=== PATIENT | female | born 1985 | race Caucasian/White ===

== ENCOUNTER 2017-05-21 12:40 | Outpatient (CLI) | payer OTHER | END 2017-05-21 12:41 | disposition home or self-care (01) | LOC: ULT 12:40 | PROVIDERS: ATTEND Family Medicine | DX: R00.2 Palpitations (principal); I34.0 Nonrheumatic mitral (valve) insufficiency; I37.1 Nonrheumatic pulmonary valve insufficiency; I07.1 Rheumatic tricuspid insufficiency | CPT/HCPCS: 93306 ==

== ENCOUNTER 2017-07-26 01:02 | Day surgery (SDC) | payer OTHER ==
[2017-07-26 01:35] VITALS: BP 120/78; TEMP 98.5; BMI 20.5
[2017-07-26 01:55] LABS: Amnisure Internal Control QC ACCEPTABLE (ACCEPTABLE)
[2017-07-26 02:05] LABS: Amnisure Test RUPTURE DETECTED (No Rupture)
== END 2017-07-26 02:35 | disposition home or self-care (01) ==
LOC: L&D/OP 01:02
PROVIDERS: ATTEND Family Medicine
DX: O26.899 Other specified pregnancy related conditions, unspecified trimester (principal); Z3A.00 Weeks of gestation of pregnancy not specified; Z79.82 Long term (current) use of aspirin; Z79.899 Other long term (current) drug therapy
CPT/HCPCS: 84112

== ENCOUNTER 2017-07-26 07:25 | Inpatient (IN) | payer OTHER ==
[2017-07-26 07:58] VITALS: BMI 20.5
[2017-07-26] MEDS ORDERED: Promethazine HCl 25 MG/ML VIAL IM PRN (09:20)
[2017-07-26] MEDS ORDERED: Ondansetron HCl/PF 4 MG/2 ML Vial IVP PRN ×2 (09:20→23:37)
[2017-07-26] MEDS ORDERED: LR 500 ML/Oxytocin 10 units 500 ML IVPB SCH (09:30)
[2017-07-26 09:56] LABS: Hemoglobin 12.3 g/dL (12.0-16.0); Mean Corpuscular HGB CONC 32.7 g/dL (32.0-36.0); Mean Corpuscular Hemoglobin 30.9 pg (27.0-31.0); Mean Corpuscular Volume 94.5 fl (81.0-99.0); Mean Platelet Volume 10.4 fL (7.4-10.4); Platelet Count 157 thou/uL (130-400); Red Blood Cell (RBC) Count 3.98 mill/uL (4.20-5.40); White Blood Cell (WBC) Count 12.2 thou/uL (4.8-10.8)
[2017-07-26 10:49] LABS: HBSAg Index 0.14 S/CO (0-0.99); Hep B Surf Ag Non-Reactive S/CO (NonReactive); Syphilis Antibody Nonreactive (Nonreactive); Syphilis Antibody Index 0.03 S/CO (<1.00 Non-Reactive)
[2017-07-26] MEDS: Lactated Ringer's 1,000 ML IV SCH (15:45)
[2017-07-26] MEDS ORDERED: LR / Pitocin 40 units/1000 ml 1,000 ML ONE (16:17)
[2017-07-26] MEDS ORDERED: LR / Pitocin 40 units/1000 ml 1,000 ML IV PRN (16:39)
[2017-07-26] MEDS ORDERED: Acetaminophen/Codeine 30-300mg Tablet PO PRN ×2 (16:39→23:37)
[2017-07-26] MEDS ORDERED: HYDROcodone/Acetaminophen 5/325 mg Tablet PO PRN ×2 (16:39→23:37)
[2017-07-26] MEDS ORDERED: Lidocaine 1% (PF) 30 ML VIAL SC PRN (16:39)
[2017-07-26] MEDS ORDERED: Misoprostol 200 MCG TAB PR PRN (16:39)
[2017-07-26] MEDS ORDERED: Ibuprofen 800 MG TAB PO PRN (16:39)
[2017-07-26] MEDS ORDERED: Misoprostol 200 MCG TAB ONE (17:24)
[2017-07-26] MEDS ORDERED: Methylergonovine 0.2 MG/ML VIAL ONE (17:55)
[2017-07-26] MEDS ORDERED: Carboprost 250 MCG/ML AMP IM PRN (18:02)
[2017-07-26] MEDS ORDERED: Methylergonovine 0.2 MG/ML VIAL IM PRN (18:02)
[2017-07-26] MEDS ORDERED: Diphenoxylate HCl/Atropine Tablet PO PRN (18:03)
--- NOTE | 2017-07-26 18:49 | PDOC.EVN ---
Event Note - Event Note Event Note: I was called to the room to evaluate bleeding following a normal . Patient had 200ml blood loss during delivery but was noted to continue bleeding moderately with passage of clots. I ordered methergine 0.2 to be given IM and after 15 minutes, continued with moderate bleeding. Bimanual exam was performed with removal of 966ml of measured blood and clot from lower uterine segment and vagina with firm uterus and minimal bleeding following. Patient has received 2L 40u Pit in LR, Methergine 0.2 IM, and 800mcg cytotec [place]. Acevedo catheter placed. CBC ordered. Will continue Methergine PO TID scheduled at this time. BP at baseline, mildly tachycardic. Continue to monitor.
[2017-07-26 19:04] LABS: #Lymphocytes 1.2 thou/uL (1.20-3.40); #Monocytes 1.3 thou/uL (0.11-0.59); %Basophils 0.1 % (0.0-1.0); %Eosinophils 0.1 % (0.0-10.0); %Monocytes 7.7 % (0.0-10.0); %Neutrophils 85.1 % (42.0-75.0); Hemoglobin 12.3 g/dL (12.0-16.0); Mean Corpuscular HGB CONC 32.9 g/dL (32.0-36.0); Mean Corpuscular Hemoglobin 31.4 pg (27.0-31.0); Mean Corpuscular Volume 95.2 fl (81.0-99.0); Mean Platelet Volume 10.5 fL (7.4-10.4); Platelet Count 148 thou/uL (130-400); RBC Distribution Width 11.9 % (11.5-14.5); Red Blood Cell (RBC) Count 3.92 mill/uL (4.20-5.40); White Blood Cell (WBC) Count 16.5 thou/uL (4.8-10.8)
[2017-07-26] MEDS: Methylergonovine 0.2 MG TAB PO SCH (20:40)
[2017-07-26] MEDS ORDERED: LR / Pitocin 40 units/1000 ml 1,000 ML IV SCH (23:37)
[2017-07-26] MEDS ORDERED: Benzocaine/Menthol 20-0.5% 60 ML CAN TOP PRN (23:37)
[2017-07-26] MEDS ORDERED: Bisacodyl 10 MG SUPP PR PRN (23:37)
[2017-07-26] MEDS ORDERED: Lanolin Ointment 7 GM TUBE TOP PRN (23:37)
[2017-07-26] MEDS ORDERED: diphenhydrAMINE 25 MG CAP PO PRN (23:37)
[2017-07-26] MEDS ORDERED: Preparation H Ointment 28 GM TUBE PR PRN (23:37)
[2017-07-26] MEDS ORDERED: Milk Of Magnesia 30 ML UDCUP PO PRN (23:37)
[2017-07-27] MEDS ORDERED: Ibuprofen 800 MG TAB PO SCH (00:15)
[2017-07-27] MEDS ORDERED: Docusate Calcium (SURFAK) 240 MG CAP PO SCH (00:15)
[2017-07-27] MEDS ORDERED: Ferrous Sulfate 325 MG TAB PO SCH (00:15)
[2017-07-27] MEDS: Methylergonovine 0.2 MG TAB PO SCH ×4 (01:17→21:33)
[2017-07-27] MEDS: Ibuprofen 800 MG TAB PO SCH ×4 (01:18→21:34)
[2017-07-27] MEDS: Docusate Calcium (SURFAK) 240 MG CAP PO SCH ×3 (01:18→21:34)
[2017-07-27] MEDS: Ferrous Sulfate 325 MG TAB PO SCH ×3 (01:18→17:21)
[2017-07-27] MEDS: Lactated Ringer's 1,000 ML IV SCH (01:21)
[2017-07-27 05:45] LABS: Hemoglobin 9.9 g/dL (12.0-16.0); Mean Corpuscular HGB CONC 33.7 g/dL (32.0-36.0); Mean Corpuscular Hemoglobin 32.3 pg (27.0-31.0); Mean Corpuscular Volume 95.9 fl (81.0-99.0); Platelet Count 150 thou/uL (130-400); Red Blood Cell (RBC) Count 3.07 mill/uL (4.20-5.40); White Blood Cell (WBC) Count 13.7 thou/uL (4.8-10.8)
[2017-07-27] MEDS: Prenatal Vitamin 1 TAB PO SCH (09:00)
[2017-07-28] MEDS: Ibuprofen 800 MG TAB PO SCH ×2 (06:32→13:29)
[2017-07-28] MEDS: Ferrous Sulfate 325 MG TAB PO SCH ×2 (10:07→17:46)
[2017-07-28] MEDS: Docusate Calcium (SURFAK) 240 MG CAP PO SCH (10:07)
[2017-07-28] MEDS: Prenatal Vitamin 1 TAB PO SCH (10:07)
[2017-07-28] MEDS: Methylergonovine 0.2 MG TAB PO SCH ×2 (10:08→13:31)
[2017-07-28 10:59] VITALS: BP 102/63; TEMP 98.7
== END 2017-07-28 18:44 | disposition home or self-care (01) | DRG 774 ==
LOC: L&D/OP 07:25 → L&D 10:17 → 3SW 23:28
PROVIDERS: ADMIT Family Medicine; ATTEND Family Medicine
PROC: 10E0XZZ Delivery of Products of Conception, External Approach (ICD-10-PCS; principal; 2017-07-26)
PROC: 3E033VJ Introduction of Other Hormone into Peripheral Vein, Percutaneous Approach (ICD-10-PCS; 2017-07-26)
DX: O72.1 Other immediate postpartum hemorrhage (principal); M81.0 Age-related osteoporosis without current pathological fracture; O42.02 Full-term premature rupture of membranes, onset of labor within 24 hours of rupture; Z37.0 Single live birth; Z3A.37 37 weeks gestation of pregnancy; O99.89 Other specified diseases and conditions complicating pregnancy, childbirth and the puerperium
CPT/HCPCS: 36415; 84112; 85027; 86762; 86780; 86850; 86900; 86901; 87340; 99283; 99285; J2210; J7120

== ENCOUNTER 2017-09-23 13:18 | Outpatient (CLI) | payer OTHER | END 2017-09-23 13:19 | disposition home or self-care (01) | LOC: BICMAMMO 13:18 | PROVIDERS: ATTEND Family Medicine | DX: M81.0 Age-related osteoporosis without current pathological fracture (principal) | CPT/HCPCS: 77080 ==

== ENCOUNTER 2018-12-02 08:03 | Outpatient (CLI) | payer OTHER | END 2018-12-02 08:04 | disposition home or self-care (01) | LOC: CTENTCT 08:03 | PROVIDERS: ATTEND Otolaryngology Plastic Surgery within the Head & Neck | DX: J32.9 Chronic sinusitis, unspecified (principal) | CPT/HCPCS: 70486 ==

== ENCOUNTER 2019-04-03 06:49 | Emergency (ER) | payer OTHER ==
[2019-04-03 07:26] LABS: #Basophils 0.1 thou/uL (0.0-0.2); #Eosinphils 0.2 thou/uL (0.0-0.7); #Lymphocytes 2.9 thou/uL (1.20-3.40); #Monocytes 0.5 thou/uL (0.11-0.59); #Neutrophils 2.6 thou/uL (1.40-6.50); %Basophils 1.7 % (0.0-1.0); %Eosinophils 2.6 % (0.0-10.0); %Lymphocytes 46.7 % (21.0-51.0); %Monocytes 7.5 % (0.0-10.0); %Neutrophils 41.6 % (42.0-75.0); Hemoglobin 14.3 g/dL (12.0-16.0); Mean Corpuscular HGB CONC 32.6 g/dL (32.0-36.0); Mean Corpuscular Hemoglobin 29.7 pg (27.0-31.0); Mean Corpuscular Volume 91.3 fL (78.0-98.0); Platelet Count 183 thou/uL (130-400); Red Blood Cell (RBC) Count 4.81 mill/uL (4.20-5.40); White Blood Cell (WBC) Count 6.2 thou/uL (4.8-10.8)
[2019-04-03 07:49] LABS: ALT (SGPT) 14 U/L (8-55); AST (SGOT) 22 U/L (5-34); Albumin 4.7 g/dL (3.5-5.0); Alkaline Phosphatase 92 U/L (40-110); Anion Gap 12 mmol/L (10-20); BUN (Urea Nitrogen) 12 mg/dL (7.0-18.7); Bilirubin, Total 0.4 mg/dL (0.2-1.2); Calc. Creatinine Clearance 0 mL/min (70-130); Calcium 9.5 mg/dL (7.8-10.44); Carbon Dioxide 23 mmol/L (22-29); Chloride 108 mmol/L (98-107); Estimated GFR-MDRD 83; Glucose 105 mg/dL (70-105); Lipase 66 U/L (8-78); Potassium 3.4 mmol/L (3.5-5.1); Protein, Total 7.7 g/dL (6.0-8.3); Sodium 140 mmol/L (136-145)
== END 2019-04-03 08:47 | disposition home or self-care (01) ==
LOC: ERS 06:49
DX: R07.89 Other chest pain (principal); F41.9 Anxiety disorder, unspecified
CPT/HCPCS: 80053; 83690; 84443; 84484; 85025; 85379; 93005

== ENCOUNTER 2022-04-03 08:16 | Outpatient (CLI) | payer MEDICAID | END 2022-04-03 08:17 | disposition home or self-care (01) | LOC: BICMAMMO 08:16 | PROVIDERS: ATTEND Student in an Organized Health Care Education/Training Program | DX: Z13.820 Encounter for screening for osteoporosis (principal); Z68.1 Body mass index [BMI] 19.9 or less, adult; M81.0 Age-related osteoporosis without current pathological fracture; M85.851 Other specified disorders of bone density and structure, right thigh; M85.852 Other specified disorders of bone density and structure, left thigh; Z87.39 Personal history of other diseases of the musculoskeletal system and connective tissue | CPT/HCPCS: 77080 ==